=== PATIENT | female | born 1980 | race Caucasian/White ===

== ENCOUNTER 2021-03-18 22:04 | Emergency (ER) | payer OTHER ==
[~2021-03-18] VITALS: Ht 165.1 cm; Wt 68.0 kg
[2021-03-18 22:10] VITALS: BP 133/89
--- NOTE | 2021-03-18 23:16 | NUR ---
UNABLE TO LOCATE PATIENT AT THIS TIME TO DISCHARGE PATIENT.
--- NOTE | 2021-03-18 23:46 | NUR ---
UNABLE TO LOCATE PATIENT FOR DISCHARGE.
== END 2021-03-18 23:48 ==
LOC: ED 23:05
DX: S61.211A Laceration without foreign body of left index finger without damage to nail, initial encounter (principal); X58.XXXA Exposure to other specified factors, initial encounter; Y93.89 Activity, other specified; Y92.89 Other specified places as the place of occurrence of the external cause; Y99.8 Other external cause status
CPT/HCPCS: 36415; 86705; 86706; 86803; 87340; 87806; 99283; G0475